=== PATIENT | female | born 1995 | race Two or more races ===

== ENCOUNTER 2018-03-25 23:37 | Emergency (ER) | payer SELFPAY ==
[~2018-03-25] VITALS: Ht 175.3 cm; Wt 106.4 kg
[2018-03-25 23:50] VITALS: BP 127/82
[2018-03-26] MEDS ORDERED: [UNRECOGNIZED DRUG - REMARK] (00:16)
[2018-03-26] MEDS ORDERED: birth control pills (00:16)
[2018-03-26] MEDS ORDERED: depression med (00:16)
[2018-03-26] MEDS ORDERED: anxiety med (00:16)
[2018-03-26] MEDS ORDERED: pain med (00:16)
[2018-03-26 00:31] LABS: BASO # 0.1 x10^3/uL (0.0-0.2); BASO % 1 % (0-3); EOS # 0.2 x10^3/uL (0.0-0.7); EOS % 2 % (0-3); HEMATOCRIT 37.5 % (36.0-47.0); HEMOGLOBIN 12.4 g/dL (12.0-15.5); LYMPH # 2.1 x10^3/uL (1.0-4.8); LYMPH % 20 % (24-48); MEAN CORPUSCULAR HEMOGLOBIN 25 pg (25-35); MEAN CORPUSCULAR HGB CONC 33 g/dL (31-37); MEAN CORPUSCULAR VOLUME 77 fL (79-100); MONO # 1.1 x10^3/uL (0.0-1.1); MONO % 10 % (0-9); NEUT # 6.9 x10^3uL (1.8-7.7); NEUT % 67 % (31-73); PLATELET COUNT 398 x10^3/uL (140-400); RED CELL DISTRIBUTION WIDTH 15.5 % (11.5-14.5); WHITE BLOOD COUNT 10.3 x10^3/uL (4.0-11.0)
[2018-03-26 00:40] LABS: ALBUMIN 3.1 g/dL (3.4-5.0); ALBUMIN/GLOBULIN RATIO 0.6 (1.0-1.7); CALCIUM 8.5 mg/dL (8.5-10.1); CREATININE 0.8 mg/dL (0.6-1.0); GFR 91.4; POTASSIUM 3.5 mmol/L (3.5-5.1); TOTAL BILIRUBIN 0.4 mg/dL (0.2-1.0); TOTAL PROTEIN 8.5 g/dL (6.4-8.2)
[2018-03-26] MEDS ORDERED: GLYCERIN ADULT 1 SUPP.RECT. PR ONE (00:45)
[2018-03-26] MEDS ORDERED: SODIUM PHOSPHATES 19/7GM 133 ML ENEMA. PR PRN (01:30)
--- NOTE | 2018-03-26 01:52 | PHYS DOC ---
Adult General Chief Complaint Chief Complaint abd pain HPI HPI 22 years old female presented to the emergency department with abdominal pain started 2 weeks ago described as cramps R unchanging sharp pain left lower quadrant she's also been constipated she hasn't had a bowel movement in 4 days she was seen and evaluated by her primary care provider advised to come back to the emergency department that her pain is worse she denies any nausea no vomiting no diarrhea no urgency no frequency Review of Systems Review of Systems Constitutional: Denies fever or chills [] Eyes: Denies change in visual acuity, redness, or eye pain [] HENT: Denies nasal congestion or sore throat [] Respiratory: Denies cough or shortness of breath [] Cardiovascular: No additional information not addressed in HPI [] GI: Denies nausea, vomiting, bloody stools or diarrhea [] : Denies dysuria or hematuria [] Musculoskeletal: Denies back pain or joint pain [] Integument: Denies rash or skin lesions [] Neurologic: Denies headache, focal weakness or sensory changes [] Endocrine: Denies polyuria or polydipsia [] All other systems were reviewed and found to be within normal limits, except as documented in this note. Current Medications Current Medications Current Medications Medications (Trade) Dose Ordered Sig/[place] Start Time Stop Time Status Last Admin Dose Admin Glycerin (Sani-Supp Adult) 1 supp 1X ONCE 03/26/18 00:45 03/26/18 00:46 DC 03/26/18 00:37 1 SUPP Sodium Biphosphate/ Sodium Phosphate (Fleet Adult) 133 ml 1X PRN PRN 03/26/18 01:30 03/26/18 01:29 133 ML Allergies Allergies Allergies Coded Allergies Type Severity Reaction Last Updated Verified No Known Drug Allergies 03/26/18 No Physical Exam Physical Exam Constitutional: Well developed, well nourished, no acute distress, non-toxic appearance. [] HENT: Normocephalic, atraumatic, bilateral external ears normal, oropharynx moist, no oral exudates, nose normal. [] Eyes: PERRLA, EOMI, conjunctiva normal, no discharge. [] Neck: Normal range of motion, no tenderness, supple, no stridor. [] Cardiovascular:Heart rate regular rhythm, no murmur [] Lungs & Thorax: Bilateral breath sounds clear to auscultation [] Abdomen: Bowel sounds normal, soft, no tenderness, no masses, no pulsatile masses. [] Skin: Warm, dry, no erythema, no rash. [] Back: No tenderness, no CVA tenderness. [] Extremities: No tenderness, no cyanosis, no clubbing, ROM intact, no edema. [] Neurologic: Alert and oriented X 3, normal motor function, normal sensory function, no focal deficits noted. [] Psychologic: Affect normal, judgement normal, mood normal. [] Current Patient Data Vital Signs Vital Signs Date Time Temp Pulse Resp B/P (MAP) Pulse Ox O2 Delivery O2 Flow Rate FiO2 03/25/18 23:50 98.8 90 20 127/82 (97) 99 Room Air Lab Results Laboratory Tests Test 03/26/18 00:05 Sodium Level 137 mmol/L (136-145) Potassium Level 3.5 mmol/L (3.5-5.1) Chloride Level 99 mmol/L (98-107) Carbon Dioxide Level 28 mmol/L (21-32) Anion Gap 10 (6-14) Blood Urea Nitrogen 8 mg/dL (7-20) Creatinine 0.8 mg/dL (0.6-1.0) Estimated GFR (Cockcroft-Gault) 91.4 BUN/Creatinine Ratio 10 (6-20) Glucose Level 94 mg/dL (70-99) Calcium Level 8.5 mg/dL (8.5-10.1) Total Bilirubin 0.4 mg/dL (0.2-1.0) Aspartate Amino Transferase (AST) 17 U/L (15-37) Alanine Aminotransferase (ALT) 14 U/L (14-59) Alkaline Phosphatase 92 U/L (46-116) Total Protein 8.5 g/dL (6.4-8.2) H Albumin 3.1 g/dL (3.4-5.0) L Albumin/Globulin Ratio 0.6 (1.0-1.7) L Lipase 65 U/L (73-393) L EKG EKG [] Radiology/Procedures Radiology/Procedures [] Course & Med Decision Making Course & Med Decision Making Pertinent Labs and Imaging studies reviewed. (See chart for details) pt had large BM in er , pain resolved, she refused to wait for UA, refused CT , stated i am pain free, i need to go home . she understood the risk and benefits [] Final Impression Final Impression [] Problems: (1) Constipation Dragon Disclaimer Dragon Disclaimer This electronic medical record was generated, in whole or in part, using a voice recognition dictation system. BRANDON REDDY MD Mar 26, 2018 01:52
[2018-03-26] MEDS ORDERED: miralax (23:26)
[2018-03-26] MEDS ORDERED: MAGN296S9 PO (23:26)
== END 2018-03-26 01:56 | disposition home or self-care (01) ==
LOC: ER 23:37
DX: K59.00 Constipation, unspecified (principal)
CPT/HCPCS: 36415; 80053; 83690; 85025; 99284

== ENCOUNTER 2018-03-26 22:49 | Emergency (ER) | payer SELFPAY ==
[~2018-03-26] VITALS: Ht 175.3 cm; Wt 106.4 kg
[~2018-03-26 22:49] MED LIST: [UNRECOGNIZED DRUG - REMARK]; anxiety med; birth control pills; depression med; pain med
--- NOTE | 2018-03-26 22:51 | ED.ADGEN ---
Past History Past Medical History: Anxiety, Constipation, Depression Alcohol Use: Occasionally Drug Use: Marijuana Adult General Chief Complaint Chief Complaint ".. I am still having abd. pain.. .. but now vomiting.. I did have a stool today after Mag. citrate.. I am passing gas... but not that much stool.. " HPI HPI Patient is a 22 year old female who presents with above hx and complaints of abd. pain. Pt. seen yesterday for similar complaints that have been present for 2 weeks. Pt. seen by Primary- [facility], started on antibiotic for UTI. Pt. presented to ED yesterday given a. dx of constipation and seemed to respond to glycerin sup. and enema. Tonight pain more intense. Pt. localizes pain more to Rt. lower tonight.. Pt. pain is still generalized. Pt. did have stool with Mag. Citrate. No hx. of vaginal discharge.Pt. has been vomiting since intake of yogurt and jello this morning. No travel or specific ill contacts. No hx of immunosuppression. Pt. denies any hx of trauma or risk of . Denies hx of STD's. Pt. works as cook for [employer]. Review of Systems Review of Systems Constitutional: Denies fever or chills [] Eyes: Denies change in visual acuity, redness, or eye pain [] HENT: Denies nasal congestion or sore throat [] Respiratory: Denies cough or shortness of breath [] Cardiovascular: No additional information not addressed in HPI [] GI: Complaints of generalized abdominal pain, nausea, vomiting, and constipation. : Denies dysuria or hematuria [] Musculoskeletal: Denies back pain or joint pain [] Integument: Denies rash or skin lesions [] Neurologic: Denies headache, focal weakness or sensory changes [] Endocrine: Denies polyuria or polydipsia [] All other systems were reviewed and found to be within normal limits, except as documented in this note. Family History Family History Father had hx of colon problem Current Medications Current Medications Current Medications Medications (Trade) Dose Ordered Sig/[place] Start Time Stop Time Status Last Admin Dose Admin Albuterol/ Ipratropium (Duoneb) 3 ml 1X ONCE 03/27/18 01:30 03/27/18 01:32 DC Ceftriaxone Sodium 1 gm/ Sodium Chloride 50 ml @ 100 mls/hr 1X ONCE 03/27/18 00:15 03/27/18 00:44 Cancel Ceftriaxone Sodium (Rocephin) 1 gm STK-MED ONCE 03/27/18 00:21 03/27/18 00:22 DC Info (Do NOT chart on this entry -- for MONITORING) 1 each PRN DAILY PRN 03/27/18 00:15 03/27/18 05:13 DC Iohexol (Omnipaque 240 Mg/ml) 50 ml STK-MED ONCE 03/26/18 23:53 03/26/18 23:54 DC Iohexol (Omnipaque 300 Mg/ml) 75 ml 1X ONCE 03/27/18 00:30 03/27/18 00:31 DC 03/27/18 00:49 75 ML Ketorolac Tromethamine (Toradol 30mg Vial) 30 mg 1X ONCE 03/26/18 23:30 03/26/18 23:31 DC 03/26/18 23:36 30 MG Lactated Ringer's 1,000 ml @ 160 mls/hr 1X ONCE 03/27/18 03:30 03/27/18 05:13 DC 03/27/18 04:37 160 MLS/HR Magnesium Sulfate 0 ml @ As Directed STK-MED ONCE 03/26/18 23:46 03/26/18 23:47 DC Metronidazole 100 ml @ 100 mls/hr 1X ONCE 03/27/18 03:30 03/27/18 04:29 DC 03/27/18 03:42 100 MLS/HR Oxycodone/ Acetaminophen (Percocet 5/325) 1 tab STK-MED ONCE 03/26/18 23:46 03/26/18 23:48 DC Allergies Allergies Allergies Coded Allergies Type Severity Reaction Last Updated Verified No Known Drug Allergies 03/26/18 No Physical Exam Physical Exam Constitutional: Well developed, well nourished, moderately acute distress, non- toxic appearance. [] HENT: Normocephalic, atraumatic, bilateral external ears normal, oropharynx dry , no oral exudates, nose normal. [] Eyes: PERRLA, EOMI, conjunctiva normal, no discharge. [] Neck: Normal range of motion, no tenderness, supple, no stridor. [] Cardiovascular:Heart rate regular rhythm, no murmur [] Lungs & Thorax: Bilateral breath sounds clear to auscultation [] Abdomen: Bowel sounds normal, soft, generalized tenderness,some increase discomfort on Rt. Mid quadrant , rebound to Rt. lower, no masses, no pulsatile masses. Distended and tympanic. No vaginal discharge. Skin: Warm, dry, no erythema, no rash. [] Back: No tenderness, no CVA tenderness. [] Extremities: No tenderness, no cyanosis, no clubbing, ROM intact, no edema. [] + Psoas and heel tap to Rt. mid abd. . Neurologic: Alert and oriented X 3, normal motor function, normal sensory function, no focal deficits noted. [] Psychologic: Affect anxious, judgement normal, mood normal. [] Current Patient Data Vital Signs Vital Signs Date Time Temp Pulse Resp B/P (MAP) Pulse Ox O2 Delivery O2 Flow Rate FiO2 03/27/18 04:45 98.0 72 20 128/70 (89) 99 Room Air 03/26/18 22:50 97.0 Lab Results Laboratory Tests Test 03/26/18 22:55 03/26/18 23:10 03/26/18 23:19 Urine Collection Type Void Urine Color Yellow Urine Clarity Clear Urine pH 5.5 Urine Specific [place] 1.020 Urine Protein Trace (NEG-TRACE) Urine Glucose (UA) Neg mg/dL (NEG) Urine Ketones (Stick) >=160 mg/dL (NEG) Urine Blood Trace (NEG) Urine Nitrite Neg (NEG) Urine Bilirubin Neg (NEG) Urine Urobilinogen Dipstick 1 mg/dL (0.2 mg/dL) Urine Leukocyte Esterase Neg (NEG) Urine RBC 0 /HPF (0-2) Urine WBC Occ /HPF (0-4) Urine Squamous Epithelial Cells Few /LPF Urine Bacteria Few /HPF (0-FEW) Urine Opiates Screen Pos (NEG) Urine Methadone Screen Neg (NEG) Urine Barbiturates Neg (NEG) Urine Phencyclidine Screen Neg (NEG) Urine Amphetamine/Methamphetamine Neg (NEG) Urine Benzodiazepines Screen Neg (NEG) Urine Cocaine Screen Neg (NEG) Urine Cannabinoids Screen Pos (NEG) Urine Ethyl Alcohol Neg (NEG) White Blood Count 13.7 x10^3/uL (4.0-11.0) H Red Blood Count 5.11 x10^6/uL (3.50-5.40) Hemoglobin 12.7 g/dL (12.0-15.5) Hematocrit 39.0 % (36.0-47.0) Mean Corpuscular Volume 76 fL (79-100) L Mean Corpuscular Hemoglobin 25 pg (25-35) Mean Corpuscular Hemoglobin Concent 32 g/dL (31-37) Red Cell Distribution Width 15.6 % (11.5-14.5) H Platelet Count 439 x10^3/uL (140-400) H Neutrophils (%) (Auto) 80 % (31-73) H Lymphocytes (%) (Auto) 11 % (24-48) L Monocytes (%) (Auto) 8 % (0-9) Eosinophils (%) (Auto) 0 % (0-3) Basophils (%) (Auto) 1 % (0-3) Neutrophils # (Auto) 10.9 x10^3uL (1.8-7.7) H Lymphocytes # (Auto) 1.5 x10^3/uL (1.0-4.8) Monocytes # (Auto) 1.0 x10^3/uL (0.0-1.1) Eosinophils # (Auto) 0.1 x10^3/uL (0.0-0.7) Basophils # (Auto) 0.1 x10^3/uL (0.0-0.2) Prothrombin Time 10.9 SEC (9.4-11.4) Prothrombin Time INR 1.1 (0.9-1.1) PTT 30 SEC (23-33) Sodium Level 135 mmol/L (136-145) L Potassium Level 3.6 mmol/L (3.5-5.1) Chloride Level 97 mmol/L (98-107) L Carbon Dioxide Level 27 mmol/L (21-32) Anion Gap 11 (6-14) Blood Urea Nitrogen 5 mg/dL (7-20) L Creatinine 0.7 mg/dL (0.6-1.0) Estimated GFR (Cockcroft-Gault) 106.7 Glucose Level 98 mg/dL (70-99) Calcium Level 9.1 mg/dL (8.5-10.1) Total Bilirubin 0.5 mg/dL (0.2-1.0) Direct Bilirubin 0.2 mg/dL (0.0-0.2) Aspartate Amino Transferase (AST) 15 U/L (15-37) Alanine Aminotransferase (ALT) 12 U/L (14-59) L Alkaline Phosphatase 91 U/L (46-116) Total Protein 8.9 g/dL (6.4-8.2) H Albumin 3.1 g/dL (3.4-5.0) L Amylase Level 50 U/L (25-115) Lipase 64 U/L (73-393) L POC Urine HCG, Qualitative hcg negative (Negative) EKG EKG [] Radiology/Procedures Radiology/Procedures I interpretation of acute abdomen film shows no acute cardiopulmonary findings. No free air under the diaphragm. No obvious signs of constipation. Nonobstructive bowel gas pattern.[] CT Abd.= Rt. upper pelvic collection - appendiceal abscess and adenopathy. Wall thickening of base of cecum medially. See formal report. Course & Med Decision Making Course & Med Decision Making Pertinent Labs and Imaging studies reviewed. (See chart for details) Discussed presentation, testing and tx. plan with Dr. Benitez- Hospitalist, Dr. Mendosa- Surgery. Pt. transfer to [facility]. [] Final Impression Final Impression 1. Abdomen Pain[] 2. Hx. of Constipation 3. Leukocytosis 4. Dehydration 5. Microcytic 6. Appendiceal Abscess with Adenopathy Dragon Disclaimer Dragon Disclaimer This electronic medical record was generated, in whole or in part, using a voice recognition dictation system. RADHA YIN MD Mar 26, 2018 22:51
[2018-03-26] MEDS ORDERED: IV RINGERS SOLUTION,LACTATED 1,000 ML IV SCH (23:00)
[2018-03-26] MEDS ORDERED: MAGN296S9 PO (23:26)
[2018-03-26] MEDS ORDERED: miralax (23:26)
[2018-03-26] MEDS ORDERED: KETOROLAC 30 MG/ML VIAL. IV ONE (23:30)
[2018-03-26 23:41] LABS: BASO # 0.1 x10^3/uL (0.0-0.2); BASO % 1 % (0-3); EOS # 0.1 x10^3/uL (0.0-0.7); EOS % 0 % (0-3); HEMOGLOBIN 12.7 g/dL (12.0-15.5); LYMPH # 1.5 x10^3/uL (1.0-4.8); LYMPH % 11 % (24-48); MEAN CORPUSCULAR HEMOGLOBIN 25 pg (25-35); MEAN CORPUSCULAR HGB CONC 32 g/dL (31-37); MEAN CORPUSCULAR VOLUME 76 fL (79-100); MONO % 8 % (0-9); NEUT # 10.9 x10^3uL (1.8-7.7); NEUT % 80 % (31-73); PLATELET COUNT 439 x10^3/uL (140-400); RED BLOOD COUNT 5.11 x10^6/uL (3.50-5.40); RED CELL DISTRIBUTION WIDTH 15.6 % (11.5-14.5); WHITE BLOOD COUNT 13.7 x10^3/uL (4.0-11.0)
[2018-03-26] MEDS ORDERED: MAGNESIUM SULFATE 2 GM IV ONE (23:46)
[2018-03-26] MEDS ORDERED: oxyCODONE/APAP 5/325 1 TAB TABLET ONE (23:46)
[2018-03-26] MEDS ORDERED: IOHEXOL 240 MG/ML 50ML VIAL. ONE (23:53)
[2018-03-26 23:54] LABS: BACTERIA,URINE FEW /HPF (0-FEW); BILIRUBIN,URINE NEG (NEG); CLARITY,URINE CLEAR; COLOR,URINE YELLOW; GLUCOSE,URINE NEG (NEG); NITRITE,URINE NEG (NEG); RBC,URINE 0 /HPF (0-2); SQUAMOUS EPITHELIAL CELL,UR FEW /LPF; UROBILINOGEN,URINE 1 mg/dL (0.2 mg/dL); WBC,URINE OCC /HPF (0-4)
[2018-03-26 23:55] LABS: BARBITURATES NEG (NEG); BENZODIAZEPINES NEG (NEG); CANNABINOIDS POS (NEG); COCAINE NEG (NEG); METHADONE NEG (NEG); OPIATES POS (NEG); PHENCYCLIDINE NEG (NEG)
[2018-03-26 23:57] LABS: AMPHETAMINE/METHAMPHETAMINE NEG (NEG)
[2018-03-27] LABS: ALBUMIN 3.1 g/dL (3.4-5.0); CALCIUM 9.1 mg/dL (8.5-10.1); CREATININE 0.7 mg/dL (0.6-1.0); DIRECT BILIRUBIN 0.2 mg/dL (0.0-0.2); GFR 106.7; POTASSIUM 3.6 mmol/L (3.5-5.1); TOTAL BILIRUBIN 0.5 mg/dL (0.2-1.0); TOTAL PROTEIN 8.9 g/dL (6.4-8.2)
[2018-03-27] MEDS ORDERED: CONTRAST GIVEN MC PRN (00:15)
[2018-03-27] MEDS ORDERED: cefTRIAXone SODIUM 1 GM VIAL IV ONE (00:21)
[2018-03-27] MEDS ORDERED: IOHEXOL 300 MG/ML 75 ML VIAL. IV ONE (00:30)
[2018-03-27] MEDS ORDERED: cefTRIAXone IV Push 1 GM VIAL. IVP ONE (00:30)
[2018-03-27] MEDS ORDERED: IV RINGERS SOLUTION,LACTATED 1,000 ML IV ONE ×2 (01:30→03:30)
[2018-03-27] MEDS ORDERED: IPRATRPIUM/ALBUTEROL 0.5/2.5MG 3 ML NEBU. NEB ONE (01:30)
--- NOTE | 2018-03-27 03:14 | RAD ---
Examination: CT ABD PELV W/ORAL IV CONTRAST History: RLQ PAIN WITH NAUSEA/VOMITING AND CONSTIPATION TIMES 2 WEEKS. ORAL AND 75MLS OMNI 300 IV CONTRAST Comparison/Correlation: None Findings: Axial images of the abdomen and pelvis were obtained following 75 cc Omnipaque 300 IV. Sagittal and coronal reformatted images were provided. Oral contrast was administered. Visualized lung bases are clear. Liver, spleen, pancreas, and adrenal glands are normal. Kidneys are unremarkable. Right extrarenal pelvis is present. Oral contrast is noted within small bowel. Oral contrast is not identified to reach the terminal ileum. There is a collection involving the right mid pelvic region. This is best seen on axial image 63 of series 2. This measures approximately 4.6 cm x 2.8 cm. This appears to extend to the cecum. The terminal ileum appears unremarkable. Right lower quadrant borderline to enlarged lymph nodes are present in the iliac fossa region. Right adnexal follicles are present. Urinary bladder is unremarkable. Bony structures are unremarkable. Impression: Collection involving the right upper pelvic region is present. A normal appendix is not identified. Findings of appendiceal abscess. Repeat CT of the pelvis is recommended to allow for greater opacification of the bowel with oral contrast for more definitive assessment. Electronically signed by: Javier Vance MD (03/27/2018 3:10 AM) [id number]
--- NOTE | 2018-03-27 04:18 | RAD ---
Examination: CT PELVIS WO CONTRAST History: RLQ PAIN. DELAYED CT SCAN OF ORAL CONTRAST PER RADIOLOGIST. Comparison/Correlation: CT abdomen and pelvis with contrast performed earlier on the same day Findings: Axial images of the pelvis were obtained without additional contrast. Residual oral contrast is noted within bowel. Residual intravenous contrast is seen within the collecting systems. Contrast is identified to opacify the terminal ileum and most of the colon. The terminal ileum is unremarkable. Collection is noted involving the right upper pelvis anterior to the psoas muscle extending to the cecum. Wall thickening of the base of the cecum medially is noted. Enlarged lymph nodes in the right iliac fossa are present. Minimal edema in the right iliac fossa. Impression: Intermediate density right upper pelvic collection which most likely represents an appendiceal abscess. Associated lymph nodes. Electronically signed by: Javier Vance MD (03/27/2018 4:14 AM) [id number]
[2018-03-27 04:45] VITALS: BP 128/70
--- NOTE | 2018-03-27 07:59 | RAD ---
PA chest and AP upright supine abdomen x-rays HISTORY: Right lower quadrant pain with nausea and vomiting and constipation. FINDINGS: Heart and mediastinum unremarkable. Lungs are clear. No pneumoperitoneum on the upright films. No dilated bowel loops or abnormal air-fluid levels. Bones and soft tissues are unremarkable. IMPRESSION: Negative exam. Electronically signed by: Per Bell MD (03/27/2018 7:55 AM) [facility]
== END 2018-03-27 05:13 | disposition short-term general hospital (02) ==
LOC: ER 22:49
DX: R10.84 Generalized abdominal pain (principal); D72.829 Elevated white blood cell count, unspecified; E86.0 Dehydration; K35.33 Acute appendicitis with perforation, localized peritonitis, and gangrene, with abscess; R59.9 Enlarged lymph nodes, unspecified; D50.9 Iron deficiency anemia, unspecified; F41.9 Anxiety disorder, unspecified; F32.9 Major depressive disorder, single episode, unspecified
CPT/HCPCS: 36415; 72192; 74022; 74177; 80048; 80076; 80307; 81001; 81025; 82150; 83690; 85025; 85610; 85730; 96361; 96365; 96375; 99285; J0696; J1885; J3490; J7120; Q9967